=== PATIENT | male | born 1995 | race Caucasian/White ===

== ENCOUNTER 2021-12-01 20:35 | Emergency (ER) | payer OTHER ==
[~2021-12-01] VITALS: Ht 170.2 cm; Wt 61.2 kg
[2021-12-01 20:52] VITALS: BP 134/84
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
--- NOTE | 2021-12-01 21:16 | NUR ---
PT RETURNED FROM CT
[2021-12-01] MEDS ORDERED: IBUPROFEN 400 MG TABLET ONE (21:17)
[2021-12-01] MEDS ORDERED: ACETAMINOPHEN ES 500 MG TABLET ONE (21:17)
[2021-12-01] MEDS ORDERED: IBUPROFEN 400 MG TABLET PO ONE (21:30)
[2021-12-01] MEDS ORDERED: ACETAMINOPHEN ES 500 MG TABLET PO ONE (21:30)
[2021-12-01] MEDS ORDERED: IBUP-1957 PO (21:59)
== END 2021-12-01 22:19 | disposition home or self-care (01) ==
LOC: ER 20:37
DX: S30.0XXA Contusion of lower back and pelvis, initial encounter (principal); V09.9XXA Pedestrian injured in unspecified transport accident, initial encounter; Y93.89 Activity, other specified; Y92.89 Other specified places as the place of occurrence of the external cause; Y99.8 Other external cause status
CPT/HCPCS: 72131-TC

== ENCOUNTER 2021-12-22 16:10 | Emergency (ER) | payer OTHER ==
[~2021-12-22] VITALS: Ht 193 cm; Wt 90.7 kg
[~2021-12-22 16:10] MED LIST: IBUP-1957 PO
[2021-12-22 16:58] VITALS: BP 142/84
[2021-12-22] MEDS ORDERED: TDAP [DIPH/PERTUSSIS/TET] 0.5 ML VIAL IM ONE ×2 (17:29→17:30)
[2021-12-22] MEDS ORDERED: BACI/NEOM/POLY B OINT PKT 1 UDPKT PACKET TP ONE (17:30)
[2021-12-22] MEDS ORDERED: CEPH500T PO (17:48)
--- NOTE | 2021-12-22 18:22 | NUR ---
SKIN INTACT,NO NEED FOR NEOSPORIN
== END 2021-12-22 18:32 | disposition home or self-care (01) ==
LOC: ER 16:13
DX: T63.511A Toxic effect of contact with stingray, accidental (unintentional), initial encounter (principal); M79.672 Pain in left foot; Z60.2 Problems related to living alone; Y92.89 Other specified places as the place of occurrence of the external cause
CPT/HCPCS: 90715